=== PATIENT | female | born 1990 | race Caucasian/White ===

== ENCOUNTER → 2019-03-05 16:13 | Outpatient (CLI) | payer OTHER, SELFPAY ==
[2019-03-09 17:06] LABS: HPV Reflexed? NOT INDICATED
== END ==
PROVIDERS: Visit Provider Obstetrics & Gynecology
DX: Z12.4 Encounter for screening for malignant neoplasm of cervix (principal)
CPT/HCPCS: 88175; G0145

== ENCOUNTER → 2021-11-15 | Outpatient (CLI) | payer BC, SELFPAY ==
[2021-11-20 18:13] LABS: HPV Reflexed? NOT INDICATED
== END | disposition home or self-care (01) ==
LOC: LABSPEC 11:16
PROVIDERS: Visit Provider Obstetrics & Gynecology
DX: Z12.4 Encounter for screening for malignant neoplasm of cervix (principal)
CPT/HCPCS: 88175; G0145